=== PATIENT | male | born 1940 | race Caucasian/White ===

== ENCOUNTER 2017-11-25 02:35 | Inpatient (IN) | payer MEDICARE ==
[2017-11-25] MEDS ORDERED: NORMAL SALINE 1000 ML 1,000 ML IV ONE (02:57)
--- NOTE | 2017-11-25 02:59 | ER Document Report ---
ED General - General Chief Complaint: Diarrhea Stated Complaint: DIARRHEA Time Seen by Provider: 11/25/17 02:44 Mode of Arrival: Ambulatory Information source: Patient Notes: 77-year-old male presents with complaint of diarrhea, weakness, dizziness. Patient states that he has had ongoing diarrhea for 3 weeks. Patient admits to associated abdominal cramping that is relieved after a bowel movement. He denies any recent antibiotic use. He does state that he was recently hospitalized at [facility] for back pain. Patient denies any fever, chills, nausea, vomiting, chest pain, shortness of breath. TRAVEL OUTSIDE OF THE [place] IN LAST 30 DAYS: No - HPI Onset: Other Onset/Duration: Persistent Quality of pain: Cramping Severity: Mild Associated symptoms: Diarrhea. denies: Chest pain, Fever, Nausea, Vomiting, Shortness of breath Exacerbated by: Food Relieved by: Denies Similar symptoms previously: No Recently seen / treated by doctor: Yes - Related Data Allergies/Adverse Reactions: No Known Allergies Allergy (Unverified 11/25/17 06:04) Past Medical History - General Information source: Patient, [facility] Records - Social History Smoking Status: Former Smoker Chew tobacco use (# tins/day): No Frequency of alcohol use: None Drug Abuse: None Lives with: Alone Family History: Reviewed & Not Pertinent Patient has suicidal ideation: No Patient has homicidal ideation: No - Past Medical History Cardiac Medical History: Reports: Hx Hypertension Renal/ Medical History: Denies: Hx Peritoneal Dialysis GI Medical History: Reports: Hx Gastroesophageal Reflux Disease Review of Systems - Review of Systems Notes: REVIEW OF SYSTEMS: CONSTITUTIONAL : Denies fever, chills, or sweats. Denies recent illness. Denies weight loss, recent hospitalizations. EENT: Denies visual changes, eye pain. Denies sore throat, oral lesions, difficulty swallowing. CARDIOVASCULAR: Denies chest pain. Denies palpitations. Denies lower extremity edema. RESPIRATORY: Denies cough. Denies shortness of breath, wheezing. GASTROINTESTINAL: Denies abdominal distention. Denies nausea, vomiting. Denies blood in vomitus, stools, or per rectum. Denies black, tarry stools. Denies constipation. GENITOURINARY: Denies difficulty urinating, painful urination, frequency, blood in urine, testicular pain or penile discharge. MUSCULOSKELETAL: Denies back or neck pain or stiffness. Denies joint pain or swelling. SKIN: Denies rash, lesions or sores. HEMATOLOGIC : Denies easy bruising or bleeding. LYMPHATIC: Denies swollen glands. NEUROLOGICAL: Denies confusion or altered mental status. Denies loss of consciousness. Denies dizziness or lightheadedness. Denies headache. Denies weakness or paralysis. Denies problems difficulty with ambulation, slurred speech. Denies sensory loss, numbness, or tingling. Denies seizures. PSYCHIATRIC: Denies anxiety or stress. Denies depression, suicidal ideation, or Physical Exam - Vital signs Vitals: Resp 11/25/17 06:20 - Notes Notes: PHYSICAL EXAMINATION: GENERAL: Well-appearing, well-nourished and in no acute distress. HEAD: Atraumatic, normocephalic. EYES: Pupils equal round and reactive to light, extraocular movements intact, sclera anicteric, conjunctiva are normal. ENT: Nares patent, oropharynx clear without exudates. Moist mucous membranes. NECK: Normal range of motion, supple without lymphadenopathy LUNGS: Breath sounds clear to auscultation bilaterally and equal. No wheezes rales or rhonchi. HEART: Regular rate and rhythm without murmurs ABDOMEN: Soft, nontender, nondistended abdomen. No guarding, no rebound. No masses appreciated. Musculoskeletal: Normal range of motion, no pitting or edema. No cyanosis. NEUROLOGICAL: Cranial nerves grossly intact. Normal speech, normal gait. Normal sensory, motor exams PSYCH: Normal mood, normal affect. SKIN: Warm, Dry, normal turgor, no rashes or lesions noted. Course - Re-evaluation Re-evalutation: Laboratory 11/25/17 11/25/17 11/25/17 03:20 03:20 03:20 WBC 6.5 RBC 4.69 Hgb 13.2 L Hct 37.3 L MCV 80 MCH 28.2 MCHC 35.4 RDW 13.7 Plt Count 250 Seg Neutrophils % 68.5 Lymphocytes % 15.1 Monocytes % 12.2 Eosinophils % 3.7 Basophils % 0.5 Absolute Neutrophils 4.4 Absolute Lymphocytes 1.0 Absolute Monocytes 0.8 Absolute Eosinophils 0.2 Absolute Basophils 0.0 Sodium 140.8 Potassium 2.5 L* Chloride 102 Carbon Dioxide 28 Anion Gap 11 BUN 22 H Creatinine 1.72 H Est GFR ( Amer) 47 L Est GFR (Non-Af Amer) 39 L Glucose 108 Calcium 9.5 Magnesium 1.8 Total Bilirubin 1.5 H Direct Bilirubin 0.9 H Neonat Total Bilirubin Not Reportable Neonat Direct Bilirubin Not Reportable Neonat Indirect Bili Not Reportable AST 24 ALT 32 Alkaline Phosphatase 71 Total Protein 7.4 Albumin 4.1 11/25/17 06:57 77-year-old male presents via EMS complaining of diarrhea, weakness and dizziness. Patient states diarrhea has been ongoing for 3 weeks. His dizziness has been ongoing for 1 year. Patient is well-appearing. He does not appear toxic or dehydrated. He has a normal neurologic exam. Family at the bedside states that he has been to multiple specialists for his dizziness including neurology, cardiology. Patient is unsure whether he was placed on antibiotic X during his recent hospitalization. Significant findings include a potassium of 2.5. IV and p.o. potassium initiated. EKG shows QTC of 500. Patient is agreeable to admission and accepted by the hospitalist Dr. Rivera. 11/25/17 06:58 - Vital Signs Vital signs: Temp Pulse Resp BP Pulse Ox 97.9 F 75 16 179/90 H 75 L 11/25/17 16:52 11/25/17 16:52 11/25/17 16:52 11/25/17 16:52 11/25/17 16:52 - Laboratory Result Diagrams: 11/25/17 03:20 11/25/17 19:30 Laboratory results interpreted by ar: 11/25/17 11/25/17 11/25/17 03:20 03:20 03:20 Hgb 13.2 L Hct 37.3 L Potassium 2.5 L* BUN 22 H Creatinine 1.72 H Est GFR ( Amer) 47 L Est GFR (Non-Af Amer) 39 L Total Bilirubin 1.5 H Direct Bilirubin 0.9 H Urine Protein 30 H - EKG Interpretation by Mn EKG shows normal: Sinus rhythm Rate: Normal Rhythm: NSR Discharge - Discharge Clinical Impression: Dizziness, Hypokalemia, Acute kidney injury Diarrhea Qualifiers: Diarrhea type: unspecified type Qualified Code(s): R19.7 - Diarrhea, unspecified Condition: Good Disposition: ADMITTED INPATIENT Admitting Provider: Hospitalist Unit Admitted: Medical Floor
[2017-11-25 03:41] LABS: ABSOLUTE EOSINOPHILS # (AUTO) 0.2 10^3/uL (0.0-0.6); ABSOLUTE MONOCYTES (AUTO) 0.8 10^3/uL (0.1-1.4); ABSOLUTE NEUT (AUTO) 4.4 10^3/uL (1.7-8.2); BASOPHILS % (AUTO) 0.5 % (0-2); EOSINOPHILS % (AUTO) 3.7 % (0-6); HEMATOCRIT 37.3 % (37.9-51.0); HEMOGLOBIN 13.2 g/dL (13.5-17.0); LYMPHOCYTES % (AUTO) 15.1 % (13-45); MEAN CORPUSCULAR HEMOGLOBIN 28.2 pg (27.0-33.4); MEAN CORPUSCULAR HGB CONC 35.4 g/dL (32.0-36.0); MEAN CORPUSCULAR VOLUME 80 fl (80-97); MONOCYTES % (AUTO) 12.2 % (3-13); PLATELET COUNT 250 10^3/uL (150-450); RED BLOOD COUNT 4.69 10^6/uL (4.35-5.55); RED CELL DISTRIBUTION WIDTH 13.7 % (11.5-14.0); SEGMENTED NEUTROPHILS % (AUTO) 68.5 % (42-78); TOTAL CELLS COUNTED % (AUTO) 100 %; WHITE BLOOD COUNT 6.5 10^3/uL (4.0-10.5)
[2017-11-25 03:52] LABS: ALANINE AMINOTRANSFERASE 32 U/L (21-72); ALBUMIN 4.1 g/dL (3.5-5.0); ALKALINE PHOSPHATASE 71 U/L (38-126); ANION GAP 11 (5-19); ASPARTATE AMINO TRANSFERASE 24 U/L (17-59); BILIRUBIN,DIRECT 0.9 mg/dL (0.0-0.4); BILIRUBIN,TOTAL 1.5 mg/dL (0.2-1.3); BLOOD UREA NITROGEN 22 mg/dL (7-20); CALCIUM 9.5 mg/dL (8.4-10.2); CARBON DIOXIDE 28 mmol/L (22-30); CHLORIDE 102 mmol/L (98-107); GLUCOSE 108 mg/dL (75-110); SODIUM 140.8 mmol/L (137-145); TOTAL PROTEIN 7.4 g/dL (6.3-8.2)
[2017-11-25 03:55] LABS: POTASSIUM 2.5 mmol/L (3.6-5.0)
[2017-11-25] MEDS ORDERED: POTASSI CL 20 MEQ/50 ML RIDER 20 MEQ/50 ML RTUPB IV ONE (05:08)
[2017-11-25] MEDS: POTASSIUM CHLORIDE 10 MEQ CAPSULE.ER PO ONE ×2 (05:31→05:46)
[2017-11-25] MEDS ORDERED: PROMETHAZINE HCL 25 MG TABLET PO PRN (05:34)
[2017-11-25] MEDS ORDERED: PROMETHAZINE HCL INJ 25 MG/1 ML VIAL IV PRN (05:34)
[2017-11-25] MEDS ORDERED: MAG HYDROX/AL HYDROX/SIMETH SUSP 30 ML UDCUP PO PRN (05:34)
[2017-11-25] MEDS ORDERED: TEMAZEPAM 7.5 MG CAPSULE PO PRN (05:34)
[2017-11-25] MEDS ORDERED: ACETAMINOPHEN 325 MG TABLET PO PRN (05:34)
[2017-11-25] MEDS ORDERED: POTASSIUM CHLORIDE 20 MEQ/15 ML UDCUP PO ONE ×3 (05:39→13:30)
--- NOTE | 2017-11-25 06:10 | PDOC H&P ---
History of Present Illness Admission Date/PCP: 11/25/2017 JOSE KATZ MD Patient complains of: Generalized weakness History of Present Illness: ALMA DARBY is a 77 year old male who comes to the emergency department with generalized weakness. Patient is been having diarrhea for the last 10 days, he tells me that he is having 1-2 nonbloody bowel movements a day, liquid, sometimes large sometimes a small. Crampy abdominal pain before every bowel movement. Not associated with fever or chills. Today he called his son and told him that he is having nausea and vomiting but when the son went to see him he denies having any vomiting. Chronic dizziness. Denies shortness of breath, chest pain, dysuria, hematuria or frequency In the emergency department potassium was found on 2.5, ordered of 80 mg p.o. + 20 mg IV. BUN 22 and creatinine 1.7, we assume that he has normal creatinine. Past Medical History Cardiac Medical History: Reports: Other - Hypotension GI Medical History: Reports: Gastroesophageal Reflux Disease Past Surgical History Past Surgical History: Reports: None Social History Information Source: Patient Lives with: Alone Smoking Status: Former Smoker - 30 years ago Frequency of Alcohol Use: None Hx Recreational Drug Use: No Hx Prescription Drug Abuse: No Family History Family History: Reviewed & Not Pertinent Parental Family History Reviewed: No Children Family History Reviewed: NA Sibling(s) Family History Reviewed.: NA Medication/Allergy Allergies/Adverse Reactions: No Known Allergies Allergy (Unverified 11/25/17 06:04) Review of Systems Review of Systems: As outlined above, others negative Physical Exam Vital Signs: Intake & Output 11/23/17 11/24/17 11/25/17 06:59 06:59 06:59 Intake Total 1000 Balance 1000 Additional comments: General appearance: Well-developed, well-nourished, alert and cooperative, and appears to be in no acute distress Head: Normocephalic Eyes: PEERL, EOMI, vision is grossly intact. Ears: External auditory canal and tympanic membranes clear, hearing decreased. Nose: No nasal discharge. Throat : Oral cavity and pharynx normal. No inflammation, swelling, exudate or lesions. Neck: Neck supple, nontender without lymphadenopathy, masses or thyromegaly. Cardiac: Normal S1 and S2. No S3, S4 or murmurs. Rhythm is regular. There is no peripheral edema, cyanosis or pallor. Extremities are warm and well perfused. Capillary refill is less than 2 seconds. No carotid bruits. Lungs: Clear to auscultation and percussion without rales, rhonchi, wheezing or diminished breath sounds. Not using accessory muscles. Abdomen: Positive bowel sounds. Soft. Nondistended, nontender. No guarding or rebound. No masses. No hepatosplenomegaly Extremities: No significant deformity or joint abnormality. No edema. Peripheral pulses intact. No varicosities. Neurological: Cranial nerves II through XII grossly intact. Strength and sensation symmetric and intact throughout. Reflexes 2+ throughout. Skin: Skin normal color, texture and turgor with no lesions or eruptions, warm and dry. Psychiatric: The mental examination revealed the patient was oriented to person , place, and time. The patient was able to demonstrate good judgment on recent , without hallucinations, abnormal affect or abnormal behaviors. Results Laboratory Results: 11/25/17 03:20 11/25/17 03:20 11/25/17 11/25/17 11/25/17 03:20 03:20 03:20 WBC 6.5 RBC 4.69 Hgb 13.2 L Hct 37.3 L MCV 80 MCH 28.2 MCHC 35.4 RDW 13.7 Plt Count 250 Seg Neutrophils % 68.5 Lymphocytes % 15.1 Monocytes % 12.2 Eosinophils % 3.7 Basophils % 0.5 Absolute Neutrophils 4.4 Absolute Lymphocytes 1.0 Absolute Monocytes 0.8 Absolute Eosinophils 0.2 Absolute Basophils 0.0 Sodium 140.8 Potassium 2.5 L* Chloride 102 Carbon Dioxide 28 Anion Gap 11 BUN 22 H Creatinine 1.72 H Est GFR ( Amer) 47 L Est GFR (Non-Af Amer) 39 L Glucose 108 Calcium 9.5 Magnesium 1.8 Total Bilirubin 1.5 H AST 24 ALT 32 Alkaline Phosphatase 71 Total Protein 7.4 Albumin 4.1 EKG Comments: First-degree AV block, incomplete RBBB 70bpm. No other to compare to Assessment & Plan - Diagnosis (1) Hypokalemia Is this a current diagnosis for this admission?: Yes Plan: Potassium 2.5, in the ED has been ordered 80 mg p.o. plus 20 mEq IV. Will repeat BMP at 8 AM (2) Acute kidney injury Is this a current diagnosis for this admission?: Yes Plan: BUN 22 and creatinine 1.7, patient denies having any chronic kidney disease. 1 L IV fluids given in the ED, will continue with normal saline running at 100 cc/ h. This is likely prerenal, no further workup warranted. Avoid nephrotoxic drugs. Urinalysis pending. (3) Chronic hypotension Is this a current diagnosis for this admission?: Yes Plan: Continue with fludrocortisone (4) Esophageal stricture Is this a current diagnosis for this admission?: Yes Plan: Patient was to had an EGD about 2 weeks ago in [place], for bile duct stone. Unable to be done as the EGD would not pass his esophagus. Stone passed spontaneously. (5) Acute diarrhea Is this a current diagnosis for this admission?: Yes Plan: 1-2 episodes a day, nonbloody, does not look bacterial in origin, usually after meals. I am placing an order for C. difficile and stool cultures. - Time Time Spent: 30 to 50 Minutes - Inpatient Certification Based on my medical assessment, after consideration of the patient's comorbidities, presenting symptoms, or acuity I expect that the services needed warrant INPATIENT care.: Yes I certify that my determination is in accordance with my understanding of Medicare's requirements for reasonable and necessary INPATIENT services [42 CFR 412.3e].: Yes Medical Necessity: Risk of Complication if Not Cared For in Hospital
[2017-11-25] MEDS: HEPARIN SOD (PORCINE) 5,000 UNIT/ML 1 ML SYRINGE SUBCUT SCH ×3 (06:54→21:19)
[2017-11-25 07:24] LABS: APPEARANCE,URINE CLEAR; BILIRUBIN,URINE NEGATIVE (NEGATIVE); COLOR,URINE YELLOW; GLUCOSE, URINE NEGATIVE (NEGATIVE); KETONES,URINE NEGATIVE (NEGATIVE); LEUKOCYTE ESTERASE,URINE NEGATIVE (NEGATIVE); NITRITE,URINE NEGATIVE (NEGATIVE); PROTEIN,URINE 30 mg/dL (NEGATIVE); URINE SPECIFIC GRAVITY 1.021; UROBILINOGEN,URINE NEGATIVE mg/dL (<2.0)
[2017-11-25] MEDS: NORMAL SALINE 1000 ML 1,000 ML IV PRN ×2 (09:27→21:18)
[2017-11-25] MEDS: FLUDROCORTISONE ACETATE 0.1 MG TABLET PO SCH ×2 (09:27→18:46)
[2017-11-25 09:50] LABS: ANION GAP 9 (5-19); BLOOD UREA NITROGEN 19 mg/dL (7-20); CALCIUM 8.8 mg/dL (8.4-10.2); CARBON DIOXIDE 25 mmol/L (22-30); CHLORIDE 107 mmol/L (98-107); GLUCOSE 101 mg/dL (75-110); SODIUM 140.9 mmol/L (137-145)
[2017-11-25] MEDS ORDERED: LANSOPRAZOLE 30 MG TAB.RAP.DR PO SCH (11:15)
--- NOTE | 2017-11-25 12:44 | EKG REPORT ---
SEVERITY:- ABNORMAL ECG - SINUS RHYTHM FIRST DEGREE AV BLOCK INCOMPLETE RIGHT BUNDLE BRANCH BLOCK LEFT VENTRICULAR HYPERTROPHY PROBABLE INFERIOR INFARCT, OLD : Confirmed by: Cristin Cooney MD 25-Nov-2017 12:43:35
[2017-11-25 20:11] LABS: ANION GAP 8 (5-19); BLOOD UREA NITROGEN 18 mg/dL (7-20); CALCIUM 9.1 mg/dL (8.4-10.2); CARBON DIOXIDE 26 mmol/L (22-30); CHLORIDE 108 mmol/L (98-107); GLUCOSE 101 mg/dL (75-110); POTASSIUM 3.1 mmol/L (3.6-5.0); SODIUM 142.3 mmol/L (137-145)
[2017-11-26] MEDS ORDERED: HYDRALAZINE HCL 10 MG TABLET PO ONE (01:00)
[2017-11-26] MEDS: HEPARIN SOD (PORCINE) 5,000 UNIT/ML 1 ML SYRINGE SUBCUT SCH ×3 (05:43→22:24)
[2017-11-26] MEDS ORDERED: (PENDING PHARMACY ID) (Lansoprazole [Lansoprazole] 30 MG) PO SCH (06:00)
[2017-11-26] MEDS: NORMAL SALINE 1000 ML 1,000 ML IV PRN ×2 (08:56→17:55)
[2017-11-26] MEDS: FAMOTIDINE 20 MG TABLET PO SCH ×2 (09:26→17:54)
[2017-11-26] MEDS: ASPIRIN 81 MG TABLET, ENT COATED PO SCH (09:26)
[2017-11-26] MEDS: FLUDROCORTISONE ACETATE 0.1 MG TABLET PO SCH ×2 (09:27→17:55)
[2017-11-26] MEDS: HYDRALAZINE HCL 10 MG TABLET PO PRN ×2 (15:44→22:01)
[2017-11-26] MEDS ORDERED: POTASSIUM CHLORIDE 20 MEQ/15 ML UDCUP PO ONE (18:41)
[2017-11-26] MEDS ORDERED: LOPERAMIDE HCL 2 MG CAPSULE PO ONE (18:54)
[2017-11-26] MEDS ORDERED: LOPERAMIDE HCL 2 MG CAPSULE PO PRN (18:55)
[2017-11-26] MEDS ORDERED: NORMAL SALINE 1000 ML 1,000 ML with POTASSIUM CHLORIDE 40 MEQ IV PRN ×2 (19:00)
[2017-11-26] MEDS ORDERED: HALOPERIDOL 2 MG TABLET PO PRN (20:31)
[2017-11-26] MEDS ORDERED: LOPERAMIDE HCL 2 MG CAPSULE ONE (20:40)
--- NOTE | 2017-11-27 00:02 | PDOC PROGRESS REPORT ---
Subjective Progress Note for:: 11/26/17 Subjective:: Held long discussion with son, d-in-law, and pt re: recent history of events leading up to current situation. Also discussed current med issues as inpt. Pt still having diarr, but stool studies neg for infxn, c.diff, wbc, so we've begun Imodium. K still low despite copious replacement, so adding to IVF as well as providing po. Was orthostatic with postural changes, but never hypotense or symptomatic. Reason For Visit: INTRACTABLE DIARRHEA, DEHYDRATION, SHARON, HYPOKALEMIA Physical Exam Vital Signs: Temp Pulse Resp BP Pulse Ox 97.7 F 77 18 180/90 H 99 11/26/17 20:00 11/26/17 20:00 11/26/17 20:00 11/26/17 20:00 11/26/17 20:00 Intake & Output 11/25/17 11/26/17 11/27/17 06:59 06:59 06:59 Intake Total 1280 2378 Balance 1280 2378 Weight 70.1 kg Additional comments: General appearance: Well-developed, well-nourished, alert and cooperative, and appears to be in no acute distress Head: Normocephalic Eyes: PEERL, EOMI, vision is grossly intact. Ears: External auditory canal and tympanic membranes clear, hearing decreased. Nose: No nasal discharge. Throat : Oral cavity and pharynx normal. No inflammation, swelling, exudate or lesions. Neck: Neck supple, nontender without lymphadenopathy, masses or thyromegaly. Cardiac: Normal S1 and S2. No S3, S4 or murmurs. Rhythm is regular. There is no peripheral edema, cyanosis or pallor. Extremities are warm and well perfused. Capillary refill is less than 2 seconds. No carotid bruits. Lungs: Clear to auscultation and percussion without rales, rhonchi, wheezing or diminished breath sounds. Not using accessory muscles. Abdomen: Positive bowel sounds. Soft. Nondistended, nontender. No guarding or rebound. No masses. No hepatosplenomegaly Extremities: No significant deformity or joint abnormality. No edema. Peripheral pulses intact. No varicosities. Neurological: Cranial nerves II through XII grossly intact. Strength and sensation symmetric and intact throughout. Reflexes 2+ throughout. Skin: Skin normal color, texture and turgor with no lesions or eruptions, warm and dry. Psychiatric: The mental examination revealed the patient was oriented to person , place, and time. The patient was able to demonstrate good judgment on recent , without hallucinations, abnormal affect or abnormal behaviors. Results Laboratory Results: 11/25/17 19:30 Assessment & Plan - Diagnosis (1) Postural drop in blood pressure on standing Is this a current diagnosis for this admission?: Yes Plan: sounds chronic and is treated with flurinef perhaps exac by n/v and vol loss (2) Acute diarrhea Is this a current diagnosis for this admission?: Yes Plan: since stool studies are neg, Imodium 2 mg after each loose BM IVF resusc (3) Hypokalemia Is this a current diagnosis for this admission?: Yes Plan: Cont replacement therapy IV and po get diarrhea resolved (4) Personal history of gallstones Is this a current diagnosis for this admission?: Yes Plan: sounds like recent CBD ductal stone and probable gallstone panc Fortunately passed stone since ERCP thwarted by esoph stricture May need lap choly electively (5) Acute kidney injury Is this a current diagnosis for this admission?: Yes Plan: likely d/t dehydration d/t diarrhea IVF resusc follow serial BMP (6) Esophageal stricture Is this a current diagnosis for this admission?: Yes Plan: has pill dysphag, but denies food dysphagia (chews up food well) may need non emergent dilation treat for GERD (7) Ataxia Is this a current diagnosis for this admission?: Yes Plan: family reports. pt endorses light head if he gets up too soon. P.T. eval and treat - Time Time Spent with patient: 35 or more minutes Medications reviewed and adjusted accordingly: Yes Anticipated discharge: Home Within: within 48 hours
[2017-11-27] MEDS: HEPARIN SOD (PORCINE) 5,000 UNIT/ML 1 ML SYRINGE SUBCUT SCH ×3 (06:16→21:46)
[2017-11-27 06:52] LABS: ANION GAP 8 (5-19); BLOOD UREA NITROGEN 13 mg/dL (7-20); CALCIUM 8.8 mg/dL (8.4-10.2); CARBON DIOXIDE 24 mmol/L (22-30); CHLORIDE 108 mmol/L (98-107); GLUCOSE 87 mg/dL (75-110); SODIUM 139.5 mmol/L (137-145)
[2017-11-27 07:18] LABS: POTASSIUM 2.9 mmol/L (3.6-5.0)
[2017-11-27] MEDS: HYDRALAZINE HCL 10 MG TABLET PO PRN ×2 (08:14→14:13)
[2017-11-27] MEDS: POTASSI CL 40 MEQ/NS 1L 1,000 ML IV PRN ×2 (08:15→17:28)
[2017-11-27] MEDS: FAMOTIDINE 20 MG TABLET PO SCH ×2 (09:07→17:25)
[2017-11-27] MEDS: FLUDROCORTISONE ACETATE 0.1 MG TABLET PO SCH ×2 (09:07→17:25)
[2017-11-27] MEDS: ASPIRIN 81 MG TABLET, ENT COATED PO SCH (09:07)
--- NOTE | 2017-11-27 23:59 | PDOC PROGRESS REPORT ---
Subjective Progress Note for:: 11/27/17 Subjective:: Evaluated in the presence of female family member, I believe patient said she is a cousin. He consented to her presence during evaluation and discussion. He reports feeling much better today. He reports that bowel movements are starting to firm up. He denies abdominal pain or pressure or bloating. Denies nausea/vomiting. Endorses good appetite and eats well unless he does not like the food provided. He denies postural lightheadedness upon transferring from bed to bedside commode or bathroom. Reason For Visit: Intractable nausea/vomiting, dehydration, SHARON, HYPOKALEMIA Physical Exam Vital Signs: Temp Pulse Resp BP Pulse Ox 98.0 F 76 14 166/82 H 99 11/27/17 20:27 11/27/17 20:27 11/27/17 20:27 11/27/17 20:27 11/27/17 20:27 Intake & Output 11/26/17 11/27/17 11/28/17 06:59 06:59 06:59 Intake Total 1280 3378 1696 Output Total 600 Balance 1280 3378 1096 Weight 70.1 kg 71.1 kg Additional comments: General appearance: Well-developed, well-nourished, alert and cooperative, and appears to be in no acute distress Head: Normocephalic ENT: Oral mucous membranes pink and moist Neck: No visible JVD, trachea midline Cardiac: Normal S1 and S2. No S3, S4 or murmurs. Rhythm is regular. There is no peripheral edema, cyanosis or pallor. Extremities are warm and well perfused. Lungs: Clear to auscultation and percussion without rales, rhonchi, wheezing or diminished breath sounds. Not using accessory muscles. Abdomen: Normoactive positive bowel sounds. Soft. Nondistended, nontender. No guarding or rebound. No masses. Extremities: No clubbing, cyanosis, or edema. Peripheral pulses intact. No varicosities. Neurological: No focal motor or sensory deficits elicited. Awake, alert, and oriented. Skin: Skin normal color, texture and turgor with no lesions or eruptions, warm and dry. Results Laboratory Results: 11/27/17 05:27 11/27/17 05:27 Sodium 139.5 Potassium 2.9 L* Chloride 108 H Carbon Dioxide 24 Anion Gap 8 BUN 13 Creatinine 1.11 Est GFR ( Amer) > 60 Est GFR (Non-Af Amer) > 60 Glucose 87 Calcium 8.8 Magnesium 1.6 Assessment & Plan - Diagnosis (1) Acute diarrhea Is this a current diagnosis for this admission?: Yes Plan: since stool studies were neg, Imodium 2 mg every 4 hours as needed diarrhea As a result, patient endorses stools are becoming less loose Continuing IVF resusc with supplemental potassium to replace fluid volume loss and potassium loss through diarrhea (2) Acute kidney injury Is this a current diagnosis for this admission?: Yes Plan: likely d/t dehydration d/t diarrhea IVF resusc follow serial BMP (3) Hypokalemia Is this a current diagnosis for this admission?: Yes Plan: Cont replacement therapy IV and po Follow serial potassium levels get diarrhea resolved (4) Postural drop in blood pressure on standing Is this a current diagnosis for this admission?: Yes Plan: sounds chronic and is treated with flurinef perhaps exac by n/v and vol loss Allowing his blood pressure to run a little high Last orthostatic vital signs revealed significant drop in blood pressure, but standing blood pressure not hypotensive (5) Personal history of gallstones Is this a current diagnosis for this admission?: Yes Plan: sounds like recent CBD ductal stone and probable gallstone pancreatitis Fortunately passed stone since ERCP thwarted by esoph stricture May need lap choly electively (6) Esophageal stricture Is this a current diagnosis for this admission?: Yes Plan: has pill dysphag, but denies food dysphagia (chews up food well) may need non emergent dilation treat for GERD (7) Ataxia Is this a current diagnosis for this admission?: Yes Plan: family reported shuffling gait and imbalance. pt endorses light head if he gets up too soon. P.T. eval and treat - Time Time Spent with patient: 25-34 minutes Anticipated discharge: Home Within: within 48 hours
[2017-11-28 01:28] LABS: ANION GAP 10 (5-19); BLOOD UREA NITROGEN 12 mg/dL (7-20); CALCIUM 8.7 mg/dL (8.4-10.2); CARBON DIOXIDE 23 mmol/L (22-30); CHLORIDE 108 mmol/L (98-107); GLUCOSE 88 mg/dL (75-110); POTASSIUM 3.6 mmol/L (3.6-5.0); SODIUM 140.8 mmol/L (137-145)
[2017-11-28] MEDS: POTASSI CL 40 MEQ/NS 1L 1,000 ML IV PRN ×3 (02:28→21:53)
[2017-11-28] MEDS: POTASSIUM CHLORIDE 10 MEQ CAPSULE.ER PO SCH ×3 (06:27→21:51)
[2017-11-28] MEDS: HEPARIN SOD (PORCINE) 5,000 UNIT/ML 1 ML SYRINGE SUBCUT SCH ×3 (06:27→21:51)
[2017-11-28] MEDS: ASPIRIN 81 MG TABLET, ENT COATED PO SCH (10:09)
[2017-11-28] MEDS: FLUDROCORTISONE ACETATE 0.1 MG TABLET PO SCH ×2 (10:09→17:13)
[2017-11-28] MEDS: FAMOTIDINE 20 MG TABLET PO SCH ×2 (10:09→17:13)
[2017-11-28] MEDS: HYDRALAZINE HCL 10 MG TABLET PO PRN (15:56)
[2017-11-28] MEDS: LOSARTAN POTASSIUM 50 MG TABLET PO SCH (17:12)
--- NOTE | 2017-11-28 19:35 | PDOC PROGRESS REPORT ---
Subjective Progress Note for:: 11/28/17 Subjective:: Assumed care today. Mr. Cohen is a 77-year-old male with past medical history of hypertension, esophageal stricture and history of cholelithiasis who was admitted because of diarrhea for the past 3 weeks. No acute event overnight. Upon encounter, patient is comfortable. He says he feels much better today he says that he only had one bowel movement last night and this was were slightly better formed compared to the past few days. He denies nausea or abdominal pain. He is tolerating diet well. In the afternoon, called by RN that patient had a large, watery, foul smelling BM. Reason For Visit: SHARON, HYPOKALEMIA Physical Exam Vital Signs: Temp Pulse Resp BP Pulse Ox 98.4 F 71 16 187/96 H 100 11/28/17 15:28 11/28/17 15:28 11/28/17 15:28 11/28/17 15:28 11/28/17 15:28 Intake & Output 11/27/17 11/28/17 11/29/17 06:59 06:59 06:59 Intake Total 3378 2696 1577 Output Total 600 450 Balance 3378 2096 1127 Weight 156 lb 11.979 oz 156 lb 15.506 oz General appearance: PRESENT: no acute distress, well-developed, well-nourished Head exam: PRESENT: atraumatic, normocephalic Eye exam: PRESENT: conjunctiva pink, EOMI, PERRLA. ABSENT: scleral icterus Ear exam: PRESENT: normal external ear exam Mouth exam: PRESENT: moist, tongue midline Neck exam: ABSENT: carotid bruit, JVD, lymphadenopathy, thyromegaly Respiratory exam: PRESENT: clear to auscultation margie. ABSENT: rales, rhonchi, wheezes Cardiovascular exam: PRESENT: RRR. ABSENT: diastolic murmur, rubs, systolic murmur Pulses: PRESENT: normal dorsalis pedis pul GI/Abdominal exam: PRESENT: normal bowel sounds, soft. ABSENT: distended, guarding, mass, organolmegaly, rebound, tenderness Rectal exam: PRESENT: deferred Neurological exam: PRESENT: alert, awake, oriented to person, oriented to place , oriented to time, oriented to situation, CN II-XII grossly intact. ABSENT: motor sensory deficit Results Laboratory Results: 11/28/17 00:57 11/28/17 00:57 Sodium 140.8 Potassium 3.6 Chloride 108 H Carbon Dioxide 23 Anion Gap 10 BUN 12 Creatinine 0.96 Est GFR ( Amer) > 60 Est GFR (Non-Af Amer) > 60 Glucose 88 Calcium 8.7 11/25/17 06:13 Stool - Stool - Final 11/25/17 06:13 Stool - Stool Stool Culture - Final NO SALMONELLA, SHIGELLA, CAMPYLOBACTER, OR E.COLI 0157 RECOVERED. NEGATIVE FOR SHIGA TOXINS 1&2. Assessment & Plan - Diagnosis (1) Diarrhea Qualifiers: Diarrhea type: unspecified type Qualified Code(s): R19.7 - Diarrhea, unspecified Is this a current diagnosis for this admission?: Yes Plan: Although patient said this morning, that his diarrhea has improved overnight, RN reported that patient just had a large, watery foul-smelling BM this afternoon. C. difficile was checked upon admission and this came back negative. There was also no WBCs noted on stool exam. Continue IV fluids. (2) Hypokalemia Is this a current diagnosis for this admission?: Yes Plan: Likely related to diarrhea. Repeat BMP shows potassium has normalized. We will recheck BMP tomorrow as patient apparently continues to have diarrhea. (3) Hypertension Is this a current diagnosis for this admission?: Yes Plan: Patient does not take antihypertensives at home. However his blood pressures have been persistently elevated in the 180 systolic. Will start patient on losartan. - Time Time Spent with patient: 15-24 minutes
[2017-11-29 01:30] LABS: ANION GAP 8 (5-19); BLOOD UREA NITROGEN 10 mg/dL (7-20); CALCIUM 8.7 mg/dL (8.4-10.2); CARBON DIOXIDE 24 mmol/L (22-30); CHLORIDE 108 mmol/L (98-107); GLUCOSE 81 mg/dL (75-110); POTASSIUM 3.5 mmol/L (3.6-5.0); SODIUM 140.2 mmol/L (137-145)
[2017-11-29] MEDS: HYDRALAZINE HCL 10 MG TABLET PO PRN ×3 (02:16→23:42)
[2017-11-29] MEDS: POTASSIUM CHLORIDE 10 MEQ CAPSULE.ER PO SCH ×3 (06:24→21:35)
[2017-11-29] MEDS: POTASSI CL 40 MEQ/NS 1L 1,000 ML IV PRN ×2 (06:29→19:13)
[2017-11-29] MEDS: HEPARIN SOD (PORCINE) 5,000 UNIT/ML 1 ML SYRINGE SUBCUT SCH ×3 (06:29→21:35)
[2017-11-29 08:02] LABS: ANION GAP 9 (5-19); BLOOD UREA NITROGEN 8 mg/dL (7-20); CALCIUM 8.7 mg/dL (8.4-10.2); CARBON DIOXIDE 27 mmol/L (22-30); CHLORIDE 106 mmol/L (98-107); GLUCOSE 100 mg/dL (75-110); POTASSIUM 3.4 mmol/L (3.6-5.0); SODIUM 141.6 mmol/L (137-145)
[2017-11-29] MEDS: ASPIRIN 81 MG TABLET, ENT COATED PO SCH (09:57)
[2017-11-29] MEDS: LOSARTAN POTASSIUM 50 MG TABLET PO SCH (09:57)
[2017-11-29] MEDS: FAMOTIDINE 20 MG TABLET PO SCH ×2 (09:57→17:09)
[2017-11-29] MEDS: FLUDROCORTISONE ACETATE 0.1 MG TABLET PO SCH ×2 (09:57→17:05)
[2017-11-29] MEDS: MAGNESIUM SULFATE/D5W 1 GM/100 ML RTUPB IV SCH ×4 (11:47→23:15)
--- NOTE | 2017-11-29 18:58 | PDOC PROGRESS REPORT ---
Subjective Progress Note for:: 11/29/17 Subjective:: Assumed care today. Mr. Cohen is a 77-year-old male with past medical history of hypertension, esophageal stricture and history of cholelithiasis who was admitted because of diarrhea. Patient had 2 watery, nonbloody stools overnight. Upon encounter, patient was noted to have fecal incontinence with noticeable foul-smelling, watery stools in bed. He said he was unable to make it to the bathroom. He denies any nausea or vomiting. Denies abdominal pain. He has been tolerating diet well but continues to have diarrhea. Reason For Visit: SHARON, HYPOKALEMIA Physical Exam Vital Signs: Temp Pulse Resp BP Pulse Ox 97.7 F 73 18 210/103 H 99 11/29/17 15:31 11/29/17 15:31 11/29/17 15:31 11/29/17 15:31 11/29/17 15:31 Intake & Output 11/28/17 11/29/17 11/30/17 06:59 06:59 06:59 Intake Total 2696 4257 1590 Output Total 600 750 600 Balance 2096 3507 990 Weight 156 lb 15.506 oz 157 lb 3.033 oz General appearance: PRESENT: no acute distress, well-developed, well-nourished Head exam: PRESENT: atraumatic, normocephalic Eye exam: PRESENT: conjunctiva pink, EOMI, PERRLA. ABSENT: scleral icterus Ear exam: PRESENT: normal external ear exam Mouth exam: PRESENT: moist, tongue midline Neck exam: ABSENT: carotid bruit, JVD, lymphadenopathy, thyromegaly Respiratory exam: PRESENT: clear to auscultation margie. ABSENT: rales, rhonchi, wheezes Cardiovascular exam: PRESENT: RRR. ABSENT: diastolic murmur, rubs, systolic murmur Pulses: PRESENT: normal dorsalis pedis pul GI/Abdominal exam: PRESENT: normal bowel sounds, soft. ABSENT: distended, guarding, mass, organolmegaly, rebound, tenderness Rectal exam: PRESENT: deferred Neurological exam: PRESENT: alert, awake, oriented to person, oriented to place , oriented to time, oriented to situation, CN II-XII grossly intact. ABSENT: motor sensory deficit Results Laboratory Results: 11/29/17 07:17 11/29/17 11/29/17 00:55 07:17 Sodium 140.2 141.6 Potassium 3.5 L 3.4 L Chloride 108 H 106 Carbon Dioxide 24 27 Anion Gap 8 9 BUN 10 8 Creatinine 1.01 1.02 Est GFR ( Amer) > 60 > 60 Est GFR (Non-Af Amer) > 60 > 60 Glucose 81 100 Calcium 8.7 8.7 Magnesium 1.4 L Assessment & Plan - Diagnosis (1) Diarrhea Qualifiers: Diarrhea type: unspecified type Qualified Code(s): R19.7 - Diarrhea, unspecified Is this a current diagnosis for this admission?: Yes Plan: Patient continues to have persistent watery stools. C. difficile has been tested twice and came back negative. There was also no WBCs noted on stool exam. Continue IV fluids. Will order for a stool analysis and stool culture. (2) Hypokalemia Is this a current diagnosis for this admission?: Yes Plan: Likely related to diarrhea. Potassium slightly low at 3.4 today. Continue potassium replacement. (3) Hypertension Is this a current diagnosis for this admission?: Yes Plan: Patient does not take antihypertensives at home. However his blood pressures have been persistently elevated in the 180-200 systolic. Increase losartan to 100 mg daily. Continue holding off on Florinef for now. (4) Hypomagnesemia Is this a current diagnosis for this admission?: Yes Plan: Will replace with IV magnesium. - Time Time Spent with patient: 15-24 minutes
[2017-11-30 00:59] LABS: BLOOD UREA NITROGEN 10 mg/dL (7-20); CALCIUM 8.9 mg/dL (8.4-10.2); CARBON DIOXIDE 24 mmol/L (22-30); CHLORIDE 106 mmol/L (98-107); GLUCOSE 107 mg/dL (75-110); POTASSIUM 3.7 mmol/L (3.6-5.0); SODIUM 139.3 mmol/L (137-145)
[2017-11-30 01:00] LABS: ANION GAP 9 (5-19)
[2017-11-30] MEDS: POTASSI CL 40 MEQ/NS 1L 1,000 ML IV PRN ×3 (05:21→22:34)
[2017-11-30] MEDS: HEPARIN SOD (PORCINE) 5,000 UNIT/ML 1 ML SYRINGE SUBCUT SCH ×3 (05:22→22:34)
[2017-11-30] MEDS: POTASSIUM CHLORIDE 10 MEQ CAPSULE.ER PO SCH ×3 (05:22→22:32)
[2017-11-30] MEDS: FAMOTIDINE 20 MG TABLET PO SCH ×2 (10:12→18:59)
[2017-11-30] MEDS: ASPIRIN 81 MG TABLET, ENT COATED PO SCH (10:12)
[2017-11-30] MEDS: LOSARTAN POTASSIUM 50 MG TABLET PO SCH (10:12)
[2017-11-30] MEDS ORDERED: POTASSI CL 40 MEQ/NS 1L 1,000 ML IV ONE (13:45)
--- NOTE | 2017-11-30 16:21 | PDOC PROGRESS REPORT ---
Subjective Progress Note for:: 11/30/17 Subjective:: Assumed care today. Mr. Cohen is a 77-year-old male with past medical history of hypertension, esophageal stricture and history of cholelithiasis who was admitted because of diarrhea. Patient says he was having loose watery stools for 2 weeks before presenting to the ER. Patient has not had any recurrence of diarrhea since last night. He does say he stools have been slightly better formed in the past 3 days compared to when he came in. He denies any nausea or vomiting. Denies abdominal pain. He has been tolerating diet. Reason For Visit: SHARON, HYPOKALEMIA Physical Exam Vital Signs: Temp Pulse Resp BP Pulse Ox 97.5 F 92 16 148/98 H 100 11/30/17 12:00 11/30/17 14:00 11/30/17 12:00 11/30/17 12:00 11/30/17 12:00 Intake & Output 11/29/17 11/30/17 12/01/17 06:59 06:59 06:59 Intake Total 4257 4450 1240 Output Total 750 1400 Balance 3507 3050 1240 Weight 157 lb 3.033 oz 154 lb 5.177 oz General appearance: PRESENT: no acute distress, well-developed, well-nourished Head exam: PRESENT: atraumatic, normocephalic Eye exam: PRESENT: conjunctiva pink, EOMI, PERRLA. ABSENT: scleral icterus Ear exam: PRESENT: normal external ear exam Mouth exam: PRESENT: moist, tongue midline Neck exam: ABSENT: carotid bruit, JVD, lymphadenopathy, thyromegaly Respiratory exam: PRESENT: clear to auscultation margie. ABSENT: rales, rhonchi, wheezes Cardiovascular exam: PRESENT: RRR. ABSENT: diastolic murmur, rubs, systolic murmur Pulses: PRESENT: normal dorsalis pedis pul GI/Abdominal exam: PRESENT: normal bowel sounds, soft. ABSENT: distended, guarding, mass, organolmegaly, rebound, tenderness Rectal exam: PRESENT: deferred Extremities exam: PRESENT: full ROM. ABSENT: calf tenderness, clubbing, pedal edema Neurological exam: PRESENT: alert, awake, oriented to person, oriented to place , oriented to time, oriented to situation, CN II-XII grossly intact. ABSENT: motor sensory deficit Results Laboratory Results: 11/30/17 00:34 11/30/17 11/30/17 00:34 00:34 Sodium 139.3 Potassium 3.7 Chloride 106 Carbon Dioxide 24 Anion Gap 9 BUN 10 Creatinine 0.96 Est GFR ( Amer) > 60 Est GFR (Non-Af Amer) > 60 Glucose 107 Calcium 8.9 Magnesium 2.9 H D Assessment & Plan - Diagnosis (1) Diarrhea Qualifiers: Diarrhea type: unspecified type Qualified Code(s): R19.7 - Diarrhea, unspecified Is this a current diagnosis for this admission?: Yes Plan: Improved. Patient has not had a bowel movement since last night. C. difficile has been tested twice and came back negative. There was also no WBCs noted on stool exam. Stool culture was unremarkable. (2) Hypokalemia Is this a current diagnosis for this admission?: Yes Plan: Likely related to diarrhea. Resolved. (3) Hypertension Is this a current diagnosis for this admission?: Yes Plan: Patient does not take antihypertensives at home. He was actually placed on Florinef by his PCP before due to a history of having fluctuating low and high blood pressures. However his blood pressures have been persistently elevated in the 180-200 systolic during his hospital course hence he was started on losartan and Florinef was held. (4) Hypomagnesemia Is this a current diagnosis for this admission?: Yes Plan: Resolved. - Time Time Spent with patient: 15-24 minutes
[2017-11-30] MEDS: HYDRALAZINE HCL 10 MG TABLET PO PRN (23:54)
[2017-12-01] MEDS ORDERED: HYDRALAZINE HCL 10 MG TABLET PO ONE (04:30)
[2017-12-01] MEDS: POTASSI CL 40 MEQ/NS 1L 1,000 ML IV PRN (06:44)
[2017-12-01] MEDS: HEPARIN SOD (PORCINE) 5,000 UNIT/ML 1 ML SYRINGE SUBCUT SCH (06:45)
[2017-12-01 09:03] VITALS: BP 151/74
[2017-12-01] MEDS: ASPIRIN 81 MG TABLET, ENT COATED PO SCH (10:30)
[2017-12-01] MEDS: FAMOTIDINE 20 MG TABLET PO SCH (10:30)
[2017-12-01] MEDS: LOSARTAN POTASSIUM 50 MG TABLET PO SCH (10:30)
[2017-12-01] MEDS: POTASSIUM CHLORIDE 10 MEQ CAPSULE.ER PO SCH (10:31)
[2017-12-01] MEDS ORDERED: POTASSIUM CHLORIDE 20 MEQ/15 ML UDCUP PO SCH (11:00)
--- NOTE | 2017-12-01 17:09 | PDOC DISCHARGE SUMMARY ---
General - Admit/Disc Date/PCP Admission Date/Primary Care Provider: 11/25/17 05:43 JOSE KATZ MD Discharge Date: 12/01/17 - Discharge Diagnosis (1) Diarrhea Is this a current diagnosis for this admission?: Yes (2) Hypokalemia Is this a current diagnosis for this admission?: Yes (3) Hypertension Is this a current diagnosis for this admission?: Yes (4) Hypomagnesemia Is this a current diagnosis for this admission?: Yes - Additional Information Resuscitation Status: Full Code Prescriptions: Losartan Potassium [Cozaar 50 mg Tablet] 100 mg PO DAILY #60 tablet Home Medications: Aspirin [Ecotrin 81 mg EC Tablet] 81 mg PO DAILY 11/25/17 Lansoprazole 30 mg PO Q6AM 11/25/17 Losartan Potassium [Cozaar 50 mg Tablet] 100 mg PO DAILY #60 tablet 12/01/17 History of Present Illness History of Present Illness: SONJA DARBY is a 77 year old male who comes to the emergency department with generalized weakness and diarrhea. Patient is been having diarrhea for the last 10 days, he tells me that he is having 1-2 nonbloody bowel movements a day , liquid, sometimes large sometimes a small. Crampy abdominal pain before every bowel movement. Not associated with fever or chills. Today he called his son and told him that he is having nausea and vomiting but when the son went to see him he denies having any vomiting. Chronic dizziness. Denies shortness of breath, chest pain, dysuria, hematuria or frequency. In the emergency department, potassium was found to be 2.5. Hospital Course Hospital Course: Mr. Harrison is a 77 year old male who was admitted for acute diarrhea. He also had severe hypokalemia and hypomagnesemia likely related to his GI losses. He has been comfortable throughout this hospital course. And aside from the initially persistent loose stools, he denied abdominal pain, nausea or vomiting. C. difficile was negative. Stool wbc and stool culture were also negative. He was continued on IV fluids and electrolye abnormalities were repleted. He had gradual improvement and his stools did started becoming well formed and the night prior to discharge, his BM was back to his regular baseline. He was taking Florinef at home apparently for a history of alternating low and high blood pressures. He does not take any antihypertensive prior to this admission. Florinef was held due to him having persistently elevated blood pressures despite having continuous GI losses. His blood pressures went as high as 200 systolic and even orthostatic blood pressures were also elevated. He was eventually started on Losartan which did improve his blood pressures. Litzyinef was held on discharge. He will continue to check his BP at home and log them and will ff-up with PCP next week to reassess his blood pressures. Physical Exam Vital Signs: Temp Pulse Resp BP Pulse Ox 97.8 F 96 13 151/74 H 98 12/01/17 11:35 12/01/17 11:35 12/01/17 11:35 12/01/17 11:35 12/01/17 11:35 Intake & Output 11/30/17 12/01/17 12/02/17 06:59 06:59 06:59 Intake Total 4450 4738 Output Total 1400 Balance 3050 4738 Weight 154 lb 5.177 oz 156 lb 1.396 oz General appearance: PRESENT: no acute distress, well-developed, well-nourished Head exam: PRESENT: atraumatic, normocephalic Eye exam: PRESENT: conjunctiva pink, EOMI, PERRLA. ABSENT: scleral icterus Ear exam: PRESENT: normal external ear exam Mouth exam: PRESENT: moist, tongue midline Neck exam: ABSENT: carotid bruit, JVD, lymphadenopathy, thyromegaly Respiratory exam: PRESENT: clear to auscultation margie. ABSENT: rales, rhonchi, wheezes Pulses: PRESENT: normal dorsalis pedis pul GI/Abdominal exam: PRESENT: normal bowel sounds, soft. ABSENT: distended, guarding, mass, organolmegaly, rebound, tenderness Rectal exam: PRESENT: deferred Neurological exam: PRESENT: alert, awake, oriented to person, oriented to place , oriented to time, oriented to situation, CN II-XII grossly intact. ABSENT: motor sensory deficit Results Laboratory Results: 11/30/17 00:34 Qualifiers - * PATIENT BEING DISCHARGED WITH ANY OF THE FOLLOWING DIAGNOSIS: No
== END 2017-12-01 13:04 | disposition home or self-care (01) | DRG 641 ==
LOC: EDBD → ER 02:35 → EH 05:43 → 4S 16:11
PROVIDERS: ADMIT Internal Medicine; ATTEND Internal Medicine
DX: E87.6 Hypokalemia (principal); N17.9 Acute kidney failure, unspecified; K22.2 Esophageal obstruction; R19.7 Diarrhea, unspecified; I95.89 Other hypotension; K80.80 Other cholelithiasis without obstruction; R27.0 Ataxia, unspecified; I10 Essential (primary) hypertension; E83.42 Hypomagnesemia
CPT/HCPCS: 36415; 80048; 80053; 81001; 83735; 85025; 87045; 87205; 87493; 89055; 93005; 93010; 96360; 99285; G8978-GP; G8979-GP; G8980-GP; J1644; J3475; J3480; J3490